=== PATIENT | female | born 1955 | race Native Hawaiian/Other Pacific Islander ===

== ENCOUNTER 2019-01-16 07:56 | Day surgery (SDC) | payer OTHER ==
[~2019-01-16] VITALS: Ht 157.5 cm; Wt 94.3 kg
[~2019-01-16 07:56] MED LIST: BYSTOLIC5 MG PO; CARAFATE1 GM PO; CLOPIDOGREL75 MG PO; FLUOXETINE20 M2 PO; FURO40TA93 PO; LEVO0.1T6 PO; LEVO0.2T35 PO; LISI20TA11 PO; LORAZEPAM0.5 MG OR; METF500T PO; NEURONTIN800 MG PO; OMEPRAZOLE40 MG OR; POTA20TA4 PO; PRAMIPEXOLE1.5 MG OR; PROM25TA52 PO; PROMETH/COD1 ML OR; RANO1000T PO; RHINOCORT; SIMV40TA57; TIZA4TAB5 PO; TRAZ100T OR
[2019-01-16 08:44] LABS: PLATELET COUNT 372 K/uL (152-353)
[2019-01-16 08:51] LABS: POTASSIUM 4.4 mmol/L (3.6-5.2)
[2019-01-16 09:02] LABS: PARTIAL THROMBOPLASTIN TIME 29.6 SECONDS (24.5-33.6)
== END 2019-01-16 11:40 | disposition home or self-care (01) ==
LOC: OR 07:56
PROVIDERS: Internal Medicine
PROC: 0DJD8ZZ Inspection of Lower Intestinal Tract, Via Natural or Artificial Opening Endoscopic (ICD-10-PCS; principal; 2019-01-16)
DX: R19.7 Diarrhea, unspecified (principal); K64.4 Residual hemorrhoidal skin tags; Z12.11 Encounter for screening for malignant neoplasm of colon; J44.9 Chronic obstructive pulmonary disease, unspecified; I25.10 Atherosclerotic heart disease of native coronary artery without angina pectoris; I50.9 Heart failure, unspecified
CPT/HCPCS: G0121; 80053; 85027; 85610; 85730; 94640; 94664; 94760; J1885

== ENCOUNTER 2019-01-30 11:17 | Outpatient (CLI) | payer OTHER | END 2019-01-30 23:59 | disposition home or self-care (01) | LOC: MAMMO 11:17 | DX: Z12.31 Encounter for screening mammogram for malignant neoplasm of breast (principal) ==

== ENCOUNTER 2019-03-17 13:41 | Observation (INO) | payer OTHER ==
[~2019-03-17] VITALS: Ht 157.5 cm; Wt 86.3 kg
[2019-03-17 16:22] LABS: POTASSIUM 3.7 mmol/L (3.6-5.2); SODIUM 136 mmol/L (136-145)
[2019-03-17 16:27] LABS: PLATELET COUNT 425 K/uL (152-353)
[2019-03-17 17:25] VITALS: BP 151/77; TEMP 100; Ht 157.5 cm; Wt 86.3 kg
[2019-03-17 20:00] VITALS: BP 139/66; TEMP 98.4
[2019-03-17 23:55] VITALS: BP 116/58; TEMP 98.6
[2019-03-18 04:09] VITALS: BP 143/65; TEMP 97.5
[2019-03-18 08:04] VITALS: BP 131/55; TEMP 97.6
[2019-03-18] MEDS ORDERED: BUDE1AER5 INH (10:48)
[2019-03-18] MEDS ORDERED: KLOR-CON M2020 MEQ PO (10:50)
[2019-03-18] MEDS ORDERED: GLIM4TAB PO (10:51)
[2019-03-18] MEDS ORDERED: AMITRIPTYLINE H25 MG PO (10:52)
[2019-03-18 12:00] VITALS: BP 113/51; TEMP 97.3
[2019-03-18 16:00] VITALS: BP 111/54; TEMP 98.5
[2019-03-18 20:00] VITALS: BP 103/40; TEMP 98.2
[2019-03-18 23:58] VITALS: BP 98/48; TEMP 97.5
[2019-03-19 04:00] VITALS: BP 144/58; TEMP 98.3
[2019-03-19 08:00] VITALS: BP 121/45; TEMP 98.9
[2019-03-19 10:11] LABS: PLATELET COUNT 403 K/uL (152-353)
[2019-03-19 10:33] LABS: POTASSIUM 4.7 mmol/L (3.6-5.2)
[2019-03-19 12:00] VITALS: BP 104/40; TEMP 98.5
[2019-03-19] MEDS ORDERED: AZIT250T3 PO (16:40)
[2019-03-19] MEDS ORDERED: PRED10TA27 PO (16:41)
== END 2019-03-19 18:20 | disposition home or self-care (01) ==
LOC: MED/SURG 13:41
PROVIDERS: Internal Medicine; ADMIT Family Medicine
DX: J44.1 Chronic obstructive pulmonary disease with (acute) exacerbation (principal); J20.9 Acute bronchitis, unspecified; E11.65 Type 2 diabetes mellitus with hyperglycemia; E03.8 Other specified hypothyroidism; E11.42 Type 2 diabetes mellitus with diabetic polyneuropathy; I10 Essential (primary) hypertension; G47.33 Obstructive sleep apnea (adult) (pediatric); Z72.0 Tobacco use; R09.02 Hypoxemia; R06.02 Shortness of breath
CPT/HCPCS: 36600; 80053; 81000; 82550; 82805; 83605; 83880; 84443; 84484; 85027; 87040; 87502; 93005; 94640; 94664; 94760; 96367; 96374; 96375; 99220; G0378; G0379; J0456; J0696; J1815; J2060; J2930; J3370